=== PATIENT | female | born 1955 | race Caucasian/White ===

== ENCOUNTER 2020-05-13 07:29 | Outpatient (CLI) | payer MEDICARE, OTHER, SELFPAY ==
--- NOTE | 2020-05-13 15:09 | WPDPFTINT ---
PFT Interpretation PFT Interpretation: DOS: 05/13/2020 REQUESTING: Sasha George NP REASON FOR TESTING: wheezing PULMONARY FUNCTION TESTS Results are reliable and reproducible. Spirometry: FEV1 73% mildly reduced, 1.66 L. FVC 70% mildly reduced. Slow vital capacity is 90%. FEV1% is normal. Using Slow vital capacity to calculate FEV1%, there is airflow obstruction. [id number]% is decreased at 52%. No bronchodilator was given. Lung volumes: TLC 94% normal. Slow vital capacity is 90%, much higher than the forced vital capacity, consistent with dynamic air trapping and obstructive physiology. RV 102% normal. RV/TLC is increased 43% consistent with air trapping. Airway resistance 177% increased. Diffusion: DLCO 66% mildly decreased Flow volume loop: Slow start on the expiratory limb and mild coving IMPRESSION: Mild obstructive ventilatory impairment, more significant in the small airways, air trapping, mild diffusion impairment. No bronchodilator was given. This pattern is consistent with COPD. Kimber Galicia MD
== END 2020-05-13 07:30 | disposition home or self-care (01) ==
PROVIDERS: PCP Nurse Practitioner Adult Health; Visit Provider Nurse Practitioner Adult Health
DX: R06.2 Wheezing (principal); R94.2 Abnormal results of pulmonary function studies
CPT/HCPCS: 94375; 94726; 94729

== ENCOUNTER 2020-12-16 07:58 | Outpatient (CLI) | payer MEDICARE, OTHER, SELFPAY ==
[2020-12-16 08:41] LABS: Alveolar/Arterial O2 Gradient 14.6 mmHg; Base Excess ABG 0.6 mEq/l (+/-2.0); Carboxyhemoglobin 0.3 % THb (0-2.0); Device ROOM AIR; Fractional Inspired Oxygen 21 %; HCO3 ABG 24.5 mEq/l (22.0-26.0); Methemoglobin ABG 0.3 %THb (0-1.5); Modified Allen's Test Pass; Oxygen Content ABG 19.6 %vol (16.0-22.0); Oxygen Saturation ABG 97.2 % (95.0-100.0); Oxyhemoglobin 95.9 % THb (90.0-100.0); PCO2 ABG 37.2 mmHg (35.0-45.0); PO2 ABG 90.6 mmHg (80.0-100.0); PO2 FiO2 Ratio Arterial Blood 4.31 %; Reduced Hemoglobin 3.5 %THb (0-5.0); Site Drawn RIGHT RADIAL; Total Hemoglobin 14.5 g/dL (12.0-18.0); pH ABG 7.436 (7.350-7.450)
--- NOTE | 2020-12-17 10:04 | WPDSIXMINUTE ---
Six Minute Walk Six Minute Walk: The patients O2 sats started at 95% on room air and dropped as low as 90% with a Cyril score of 1 at the end of the walk Total walk distance 274.32 meters conclusion: Although there was significant desaturation on exertion, she did not qualify for home oxygen therapy.
== END 2020-12-16 07:59 | disposition home or self-care (01) ==
PROVIDERS: PCP Nurse Practitioner Adult Health; Visit Provider Internal Medicine Pulmonary Disease
DX: J44.9 Chronic obstructive pulmonary disease, unspecified (principal)
CPT/HCPCS: 36600; 82375; 82805; 83050; 94618

== ENCOUNTER 2021-06-16 12:57 | Outpatient (CLI) | payer MEDICARE, OTHER, SELFPAY ==
--- NOTE | ~2021-06-16 | XR_ITS ---
EXAMINATION: XR lg joint inject/asp w image DATE: 06/16/2021 13:56 INDICATION: Left hip osteoarthritis. TECHNIQUE: A time-out was performed to verify the patient's name, date of , and procedure to b e performed. The procedure including the risks, benefits, and alternatives was discussed with the pat ient. Risks discussed included bleeding and infection. The patient understood the risks and agreed to proceed. The skin overlying the left hip joint was prepped and draped in usual sterile fashion. An esthetic was administered with 1% lidocaine subcutaneously. A 22 G needle was advanced under fluoros copic guidance into the joint. Injection of 1 mL of Omnipaque 240 confirmed intra-articular position of the needle. Subsequently, injectate consisting of 4 mL 0.5% bupivacaine and 1 mL 80 mg/mL Depo-M edrol was instilled. The needle was removed and the entry site was cleaned and dressed. There were no immediate complications. Fluoroscopy exposure time was 0.0 minutes. The total number of images was 2. FINDINGS: Real-time fluoroscopy demonstrates the needle in the left hip joint. Patient's pain prior t o procedure:05/04. Patient's pain following the procedure: 01/02. IMPRESSION: 1. Fluoroscopy guided left hip joint injection of local anesthetic and steroid with decrease in the p atient's presenting pain. Reviewed, dictated and finalized at location [facility]. IMPRESSION: 1. Fluoroscopy guided left hip joint injection of local anesthetic and steroid with decrease in the patient's presenting pain.
== END 2021-06-16 12:58 | disposition home or self-care (01) ==
LOC: ANHIMG 13:07
PROVIDERS: PCP Nurse Practitioner Adult Health; Visit Provider Physician Assistant Surgical
DX: M16.12 Unilateral primary osteoarthritis, left hip (principal)
CPT/HCPCS: 20610; 77002; J1040; Q9966

== ENCOUNTER 2023-03-17 07:52 | Outpatient (CLI) | payer MEDICARE, OTHER, SELFPAY ==
--- NOTE | 2023-03-18 06:46 | WPDPFTINT ---
PFT Procedure Performed PFT Procedure Performed Spirometry with Pre/Post Bronchodilator Plethysmography (Lung Vol) Diffusing Cap (DLCO) Flow Vol Loop PFT Interpretation This is a pulmonary function test with pre and post-bronchodilator spirometry, plethysmography and diffusing capacity. The test was performed and results interpreted in accordance with the 2019 and 2005 ATS/ERS Task Force guidelines respectively using the Global Lung Function Initiative-2012 reference equations. Patient demonstrated good effort and cooperation. Reproducibility criteria were met. The quality of the pre bronchodilator spirometry maneuver was Grade A and post bronchodilator spirometry maneuver was Grade A. Findings: Spirometry: The contour the inspiratory and expiratory flow tracing is normal. The pre bronchodilator FVC is 2.32 L, 75% predicted. The pre bronchodilator FEV1 is 1.65 L, 69% predicted. The pre bronchodilator FEV1: FVC ratio 71%. The post bronchodilator FVC is 2.26 L, representing a 3% decrease. The post bronchodilator FEV1 is 1.62 L, representing a 2% decrease. The post bronchodilator FEV1: FVC ratio 72%. Plethysmography: The total lung capacity is 4.29 L, 80% predicted. The functional residual capacity is 2.20 L, 71% predicted. The residual volume is 1.97 L, 86% predicted. Diffusing capacity: The diffusing capacity unadjusted for hemoglobin and carboxyhemoglobin is 14.5, 68% predicted. The diffusing capacity adjusted for alveolar volume is 4.27, 101% predicted. Impression: There is a moderate restrictive ventilatory abnormality. The spirometry is normal without evidence of an obstructive abnormality. There is no significant improvement after inhaling a single dose of albuterol. The diffusing capacity unadjusted for hemoglobin and carboxyhemoglobin is mildly decreased and normalizes when adjusted for alveolar volume. There are no prior studies for comparison
--- NOTE | 2023-03-18 06:49 | WPDSIXMINUTE ---
Six Minute Walk Procedure Procedure Performed Pulmonary Stress Test (6 min walk) Six Minute Walk Six Minute Walk: This is a 6 minute walk test. The test was performed and interpreted in accordance with the 2014 ERS/ATS task force guidelines. Findings: The patient's resting room air oxygen saturation measured by pulse oximetry was 95% and heart rate was 91 bpm. Patient ambulated for 305 meters and oxygen saturation remained 90 to 97%. Heart rate at the end of the study was 98 bpm. The patient did not qualify for supplemental oxygen at rest or with ambulation. There are no prior studies for comparison.
== END 2023-03-17 07:53 | disposition home or self-care (01) ==
LOC: ANHPFT 07:53
PROVIDERS: PCP Nurse Practitioner Adult Health; Visit Provider Nurse Practitioner
DX: J44.9 Chronic obstructive pulmonary disease, unspecified (principal); R94.2 Abnormal results of pulmonary function studies
CPT/HCPCS: 94060; 94618; 94726; 94729

== ENCOUNTER 2023-03-21 07:26 | Outpatient (CLI) | payer MEDICARE, OTHER, SELFPAY ==
[2023-03-21 19:42] LABS: Basophils Absolute Auto 0.1 K/mm3 (0.0-0.1); Basophils Percent Auto 0.8 % (0.2-1.2); Eosinophils Absolute Auto 0.6 K/mm3 (0-0.3); Eosinophils Percent Auto 8.5 % (0-4.4); Hematocrit 43.3 % (37.0-47.0); Hemoglobin 13.3 g/dL (12.0-15.0); Immature Granulocyte Absolute 0.01 K/mm3 (0.00-0.031); Immature Granulocyte Percent A 0.2 % (0-0.5); Lymphocytes Absolute Auto 1.96 K/mm3 (0.9-3.2); Lymphocytes Percent Auto 29.9 % (18.3-44.2); Mean Corpuscular HGB Conc 30.7 g/dl (32-36); Mean Corpuscular Hemoglobin 30.3 pg (26-34); Mean Corpuscular Volume 98.6 fl (80-100); Monocytes Absolute Auto 0.6 K/mm3 (0.1-0.6); Monocytes Percent Auto 8.7 % (2.6-8.5); Neutrophils Absolute Auto 3.4 K/mm3 (1.3-6.7); Neutrophils Percent Auto 51.9 % (45.5-73.1); Platelet Count Result 261 k/mm3 (150-375); Red Blood Count 4.39 M/mm3 (4.2-5.4); White Blood Count 6.6 K/mm3 (4.5-10.0)
[2023-03-21 19:57] LABS: Alanine Aminotransferase 23 U/L (6-35); Albumin Level 4.1 g/dL (3.5-5.1); Alkaline Phosphatase 94 U/L (38-126); Anion Gap 3 mmol/L (8-16); Aspartate Amino Transferase 36 U/L (14-36); Bilirubin,Total 0.6 mg/dL (0.2-1.3); Blood Urea Nitrogen 22 mg/dL (7-17); Calcium 9.1 mg/dL (8.4-10.2); Carbon Dioxide 35 mmol/L (22-30); Chloride 100 mmol/L (98-107); Cholesterol 160 mg/dL (0-200); Estimated Glomerular Filt Rate > 60; Glucose 87 mg/dL (65-110); HDL Direct 57 mg/dL; Potassium 4.2 mmol/L (3.4-5.0); Sodium 138 mmol/L (137-145); Triglycerides 105 mg/dL (<150)
[2023-03-21 20:08] LABS: LDL Cholesterol Direct 79 mg/dL
== END 2023-03-21 07:27 | disposition home or self-care (01) ==
PROVIDERS: PCP Nurse Practitioner Adult Health; Visit Provider Nurse Practitioner Adult Health
DX: I10 Essential (primary) hypertension (principal)
CPT/HCPCS: 36415; 80048; 80061; 80076; 85025

== ENCOUNTER 2023-05-26 07:20 | Outpatient (CLI) | payer MEDICARE, OTHER, SELFPAY ==
--- NOTE | ~2023-05-26 | CT_ITS ---
CT Scan of the Chest without Contrast: Clinical Indication: Fibrosis Technique: Contiguous sections were acquired throughout the chest without intravenous contrast. Dose reduction technique was used on this scan by utilizing automated exposure control and iterative recon struction technique. The dose-length product (DLP) was 575.46 mGy-cm. Findings: There is no evidence of any significant mediastinal, hilar or axillary lymphadenopathy. Coronary rae ry calcifications are present. There is no evidence of pleural or pericardial effusion. There is mild subpleural reticulation, predominantly in the upper lobes with minimal peripheral inter stitial thickening. Calcified right basilar granuloma present. Images through the upper abdomen reveal multiple calcified gallstones. Impression: Mild, peripheral chronic interstitial changes in the upper lobes. Cholelithiasis. Reviewed, dictated and finalized at [facility]. Impression: Mild, peripheral chronic interstitial changes in the upper lobes. Cholelithiasis.
== END 2023-05-26 07:21 | disposition home or self-care (01) ==
PROVIDERS: PCP Nurse Practitioner Adult Health; Visit Provider Nurse Practitioner
DX: J84.10 Pulmonary fibrosis, unspecified (principal); K80.20 Calculus of gallbladder without cholecystitis without obstruction
CPT/HCPCS: 71250

== ENCOUNTER 2023-06-16 02:25 | Day surgery (SDC) | payer MEDICARE, OTHER, SELFPAY ==
[2023-06-02 13:21] VITALS: BMI 37.0
[2023-06-16 06:44] VITALS: BP 156/100; PULSE 98; RESP 18; TEMP 36.1; O2SAT 94
[2023-06-16] MEDS: LACTATED RINGERS 1,000 ML 150 ML IV CONT (06:52)
--- NOTE | 2023-06-16 07:47 | WPDANESEPPF ---
Anes - Initial Pre Proc Eval Procedure: Operation Date: 06/16/23 08:00 Proposed Procedures p Screening Colonoscopy - Chase Glover MD Date/Time: 06/16/23 07:47 Surgeon: Chase Glover MD Pre Op Diagnosis: neoplasm colonscopy Patient Data Age: 68 Gender: F Height: 1.68 m Weight: 100 kg Last Vital Signs Temp 97 F L 06/16/23 06:44 Pulse 98 06/16/23 06:44 Resp 18 06/16/23 06:44 BP 156/100 H 06/16/23 06:44 Pulse Ox 94 06/16/23 06:44 O2 Del Method Room Air 06/16/23 06:44 Allergies Allergy/AdvReac Type Severity Reaction Status Date / Time CODIENE AdvReac Intermediate NAUSEA Uncoded 06/16/23 06:44 Home Medications Medication Instructions Recorded Confirmed Type fluoxetine 20 mg capsule 20 mg PO DAILY #90 caps 03/16/23 06/16/23 Rx fluticasone fur. 100 mcg-umeclid 1 inh inhalation DAILY 03/16/23 06/02/23 History 62.5 mcg-vilant 25 mcg inhalat.powder (Trelegy Ellipta) furosemide 20 mg tablet 20 mg PO QAM #90 tabs 03/16/23 06/02/23 Rx losartan 50 mg tablet 50 mg PO DAILY #90 tabs 03/16/23 06/16/23 Rx ibuprofen 200 mg capsule 200 mg PO Q8H PRN Pain 06/02/23 06/02/23 History multivitamin 1 tablet PO DAILY 06/02/23 06/02/23 History tramadol 50 mg tablet 50 mg PO Q6H PRN pain #120 tabs 06/06/23 Rx Patient hx anesthesia problems: none Family hx anesthesia problems: none Results Review: All pre-operative results and documents have been reviewed as part of the pre-operative evaluation. [facility] Family History Family History (Updated 03/16/23 @ 15:22 by Chandni Morales MA) Father Hypertension Cerebrovascular accident Sibling History of ETOH abuse Sibling Cancer Social History Social History (Updated 03/16/23 @ 15:33 by Chandni Morales MA) Smoking packs per day: 1.5 Smoking cigarettes per day: 30.0 Years smoked: 25 Smoking pack-years: 37.50 Smoking status: Former smoker Tobacco type: cigarettes Alcohol intake: current Alcohol use details: beer Occasional Substance use: never Substance use type: does not use Lack of Transportation: No Lack of Food: Never True Current Housing: I Have Housing Concerned About Future Housing: No Difficulty Paying Gas/Electric Bills: No Difficulty Paying for Meds: No Currently Unemployed: No Education: High School Diploma/GED Difficulty w/ Childcare or Family Care: No Living arrangements: with family Occupation/Education: occupation Additional occupation/education comments: [employer] Gender identity (if verbalized by the patient): Female Spiritual care concerns: No Agree to blood products: Yes Anes - Eval Final PreProcedure Day of Procedure 06/16/23 07:47 Patient weight: obese Heart: regular rate and rhythm Lungs: clear to auscultation Airway: Mallampati scale class II Neurological: alert and oriented Last oral intake: >/= 8 hours ASA classification: III Emergent: no Anesthetic plan: proceed Anesthesia type and monitoring: general GIVS and standard monitoring Results Review: All pre-operative results and documents have been reviewed as part of the pre-operative evaluation. Informed Consent: The patient's anesthetic plan and its attendant risks and benefits were discussed with the patient/family/POA. Questions were solicited and answers provided to the satisfaction of the patient/family/POA.
--- NOTE | 2023-06-16 07:52 | PM.HPGS ---
History of Present Illness History of Present Illness Consent: Risks, benefits, and alternatives have been discussed and questions answered. Patient agrees to proceed with procedure. Chief complaint: neoplasm colonscopy Narrative: Prema Blair is a 68 year old female with colon polyps but she thinks last colonoscopy 5 years ago did not have any. Review of Systems Constitutional: Constitutional: Denies headache(s) and Denies weakness Eyes: Eyes: Denies blurry vision ENT: Reports Normal hearing present, Denies headache(s) and Denies neck pain Cardiovascular: Cardiovascular: Denies chest pain and Denies dyspnea Respiratory: Respiratory: Denies dyspnea Gastrointestinal: Gastrointestinal: Reports no additional gastrointestinal complaints Genitourinary: Genitourinary: Denies dysuria Musculoskeletal: Musculoskeletal: Denies neck pain Integumentary/Breasts: Skin/Breast: Denies dry skin Neurologic: Reports Normal hearing present, Denies headache(s) and Denies weakness Psychiatric: Psychiatric: Denies anxiety Endocrine: Endocrine: Denies change in body appearance Hematologic/Lymphatic: Hematologic/Lymphatic: Denies easy bleeding Allergic/Immunologic: Allergic/Immunologic: Denies urticaria PMF Past Medical History Medical History (Updated 06/16/23 @ 07:53 by Chase Glover MD) Colon polyp Family History Family History (Updated 03/16/23 @ 15:22 by Chandni Morales MA) Father Hypertension Cerebrovascular accident Sibling History of ETOH abuse Sibling Cancer Social History Social History (Updated 03/16/23 @ 15:33 by Chandni Morales MA) Smoking packs per day: 1.5 Smoking cigarettes per day: 30.0 Years smoked: 25 Smoking pack-years: 37.50 Smoking status: Former smoker Tobacco type: cigarettes Alcohol intake: current Alcohol use details: beer Occasional Substance use: never Substance use type: does not use Lack of Transportation: No Lack of Food: Never True Current Housing: I Have Housing Concerned About Future Housing: No Difficulty Paying Gas/Electric Bills: No Difficulty Paying for Meds: No Currently Unemployed: No Education: High School Diploma/GED Difficulty w/ Childcare or Family Care: No Living arrangements: with family Occupation/Education: occupation Additional occupation/education comments: [employer] Gender identity (if verbalized by the patient): Female Spiritual care concerns: No Agree to blood products: Yes Meds Home Medications and Allergies Home Medications Medication Instructions Recorded Confirmed Type fluoxetine 20 mg capsule 20 mg PO DAILY #90 caps 03/16/23 06/16/23 Rx fluticasone fur. 100 mcg-umeclid 1 inh inhalation DAILY 03/16/23 06/02/23 History 62.5 mcg-vilant 25 mcg inhalat.powder (Trelegy Ellipta) furosemide 20 mg tablet 20 mg PO QAM #90 tabs 03/16/23 06/02/23 Rx losartan 50 mg tablet 50 mg PO DAILY #90 tabs 03/16/23 06/16/23 Rx ibuprofen 200 mg capsule 200 mg PO Q8H PRN Pain 06/02/23 06/02/23 History multivitamin 1 tablet PO DAILY 06/02/23 06/02/23 History tramadol 50 mg tablet 50 mg PO Q6H PRN pain #120 tabs 06/06/23 Rx Allergies Allergy/AdvReac Type Severity Reaction Status Date / Time CODIENE AdvReac Intermediate NAUSEA Uncoded 06/16/23 06:44 Vital Signs Vital Signs - 24 hr 06/16/23 06:44 Temperature 97 F L Pulse Rate 98 Respiratory Rate 18 Blood Pressure 156/100 H Pulse Oximetry 94 Oxygen Delivery Room Air Exam Const: General: comfortable and no acute distress HENMT: Face/Nose/Sinus: Normal nares present Eyes: General: appearance normal, both eyes and all related structures Neck: Neck: no JVD Resp: Auscultation: clear to auscultation bilaterally Cardio: Rate: regular rate Rhythm: regular rhythm GI: Inspection: non-distended GI Palp: Yes Soft to palpation Skin: General skin exam: normal color Neuro: General: gait nor
[2023-06-16 08:14] VITALS: BP 126/63; PULSE 82; RESP 22; O2SAT 96
--- NOTE | 2023-06-16 08:14 | SUR.OPER ---
sigmoid polyp was not retrieved, dr galeas aware.
[2023-06-16 08:24] VITALS: BP 142/83; PULSE 76; RESP 20; O2SAT 97
[2023-06-16 08:34] VITALS: BP 163/100; PULSE 72; RESP 18; O2SAT 97
== END 2023-06-16 08:39 | disposition home or self-care (01) ==
PROVIDERS: PCP Nurse Practitioner Adult Health; Visit Provider Internal Medicine Gastroenterology
PROC: 0DJD8ZZ Inspection of Lower Intestinal Tract, Via Natural or Artificial Opening Endoscopic (ICD-10-PCS; CPT 45378; principal; 2023-06-16 08:00)
DX: Z12.11 Encounter for screening for malignant neoplasm of colon (principal); K57.30 Diverticulosis of large intestine without perforation or abscess without bleeding; K63.5 Polyp of colon; K64.8 Other hemorrhoids; Z79.51 Long term (current) use of inhaled steroids; Z87.891 Personal history of nicotine dependence; E66.9 Obesity, unspecified; Z68.35 Body mass index [BMI] 35.0-35.9, adult
CPT/HCPCS: 45385; J2704; J7120

== ENCOUNTER 2023-09-22 07:25 | Outpatient (CLI) | payer MEDICARE, OTHER, SELFPAY ==
[2023-09-22 18:46] LABS: Basophils Absolute Auto 0.1 K/mm3 (0.0-0.1); Basophils Percent Auto 0.9 % (0.2-1.2); Eosinophils Absolute Auto 0.2 K/mm3 (0-0.3); Hematocrit 46.3 % (37.0-47.0); Hemoglobin 14.4 g/dL (12.0-15.0); Lymphocytes Percent Auto 31.6 % (18.3-44.2); Mean Corpuscular HGB Conc 31.1 g/dl (32-36); Mean Corpuscular Hemoglobin 30.5 pg (26-34); Mean Corpuscular Volume 98.1 fl (80-100); Mean Platelet Volume 8.9 fl (7.4-10.4); Monocytes Absolute Auto 0.6 K/mm3 (0.1-0.6); Neutrophils Percent Auto 53.5 % (45.5-73.1); Platelet Count Result 212 k/mm3 (150-375); Red Blood Count 4.72 M/mm3 (4.2-5.4); Red Cell Distribution Width 13.6 % (11.5-14.5); White Blood Count 5.7 K/mm3 (4.5-10.0)
[2023-09-22 18:55] LABS: Alanine Aminotransferase 23 U/L (6-35); Albumin Level 3.8 g/dL (3.5-5.1); Alkaline Phosphatase 90 U/L (38-126); Anion Gap 3 mmol/L (8-16); Aspartate Amino Transferase 45 U/L (14-36); Bilirubin,Total 0.6 mg/dL (0.2-1.3); Blood Urea Nitrogen 18 mg/dL (7-17); Calcium 9.1 mg/dL (8.4-10.2); Carbon Dioxide 34 mmol/L (22-30); Chloride 102 mmol/L (98-107); Cholesterol 198 mg/dL (0-200); Estimated Glomerular Filt Rate > 60; Glucose 95 mg/dL (65-110); HDL Direct 61 mg/dL; Potassium 4.5 mmol/L (3.4-5.0); Sodium 139 mmol/L (137-145); Triglycerides 64 mg/dL (<150)
[2023-09-22 19:05] LABS: LDL Cholesterol Direct 105 mg/dL
[2023-09-22 19:10] LABS: Hemoglobin A1C 6.5 % (<5.7)
== END 2023-09-22 07:26 | disposition home or self-care (01) ==
PROVIDERS: PCP Nurse Practitioner Adult Health; Visit Provider Nurse Practitioner Adult Health
DX: R73.9 Hyperglycemia, unspecified (principal); I10 Essential (primary) hypertension; M54.9 Dorsalgia, unspecified; Z98.890 Other specified postprocedural states
CPT/HCPCS: 36415; 80053; 80061; 83036; 84443; 85025

== ENCOUNTER 2023-12-01 08:56 | Outpatient (CLI) | payer MEDICARE, OTHER, SELFPAY ==
--- NOTE | ~2023-12-01 | MR_ITS ---
MRI of the lumbar spine Clinical History: Sacrococcygeal disorder Technique: Axial T2-weighted images, and sagittal T1-weighted, T2-weighted, and T2 fat-sat images wer e acquired. Findings: There is 32 degrees levoscoliosis, apex at the L3-L4 disc space level. No acute fracture ev ident. There is minimal grade 1 retrolisthesis of L2 over L3, and of L1 over L2. No suspicious bone m arrow signal reality seen. At L1-L2, there is severe degenerative disc narrowing with minimal disc bulge and mild facet arthropa thy. No vera central canal stenosis. There is mild bilateral neural foraminal narrowing. At L2-L3, there is severe degenerative disc narrowing. There is mild disc bulge with advanced facet a rthropathy, resulting in moderate spinal canal stenosis/thecal sac compression. There is severe right neural foraminal narrowing, and moderate to severe left neural foraminal narrowing. At L3-L4, there is partial fusion across the disc space with minimal disc bulge. There is moderate fa cet arthropathy. There is mild central canal stenosis. There is severe right neural foraminal narrowi ng. Left neural foramen preserved. At L4-L5, there is moderate degenerative disc narrowing. Disc bulge and severe facet arthropathy are present. No vera central canal stenosis. There is severe bilateral neural foraminal compromise. At L5-S1, there is diffuse disc bulge and severe facet arthropathy. There is mild central canal steno sis. There is severe left neural foraminal caliber otherwise. Right neural foramen preserved. Paravertebral soft tissues are unremarkable. Impression: Levoscoliosis with severe degenerative spondylitic change, as detailed above. Reviewed, dictated and finalized at [facility]. [employer] Impression: Levoscoliosis with severe degenerative spondylitic change, as detailed above.
== END 2023-12-01 08:57 ==
LOC: GOSHIMG 08:57
PROVIDERS: PCP Nurse Practitioner Adult Health; Visit Provider Orthopaedic Surgery
DX: M53.3 Sacrococcygeal disorders, not elsewhere classified (principal)
CPT/HCPCS: 72148

== ENCOUNTER 2024-04-03 07:03 | Outpatient (CLI) | payer MEDICARE, OTHER, SELFPAY ==
[2024-04-03 18:41] LABS: Basophils Absolute Auto 0.1 K/mm3 (0.0-0.1); Basophils Percent Auto 0.9 % (0.2-1.2); Eosinophils Absolute Auto 0.5 K/mm3 (0-0.3); Eosinophils Percent Auto 8.1 % (0-4.4); Hematocrit 46.4 % (37.0-47.0); Hemoglobin 14.3 g/dL (12.0-15.0); Immature Granulocyte Absolute 0.01 K/mm3 (0.00-0.031); Immature Granulocyte Percent A 0.2 % (0-0.5); Lymphocytes Absolute Auto 2.34 K/mm3 (0.9-3.2); Mean Corpuscular HGB Conc 30.8 g/dl (32-36); Mean Corpuscular Hemoglobin 31.2 pg (26-34); Mean Corpuscular Volume 101.3 fl (80-100); Monocytes Absolute Auto 0.6 K/mm3 (0.1-0.6); Monocytes Percent Auto 8.9 % (2.6-8.5); Neutrophils Absolute Auto 2.8 K/mm3 (1.3-6.7); Neutrophils Percent Auto 44.9 % (45.5-73.1); Platelet Count Result 263 k/mm3 (150-375); Red Blood Count 4.58 M/mm3 (4.2-5.4); Red Cell Distribution Width 13.9 % (11.5-14.5); White Blood Count 6.3 K/mm3 (4.5-10.0)
[2024-04-03 19:30] LABS: Alanine Aminotransferase 24 U/L (6-35); Alkaline Phosphatase 90 U/L (38-126); Anion Gap 8 mmol/L (4-12); Aspartate Amino Transferase 62 U/L (14-36); Bilirubin,Total 0.7 mg/dL (0.2-1.3); Blood Urea Nitrogen 24 mg/dL (7-17); Calcium 9.1 mg/dL (8.4-10.2); Carbon Dioxide 30 mmol/L (22-30); Chloride 100 mmol/L (98-107); Cholesterol 169 mg/dL (0-200); Estimated Glomerular Filt Rate > 60; Glucose 76 mg/dL (65-110); HDL Direct 55 mg/dL; Magnesium 2.1 mg/dL (1.6-2.3); Potassium 4.4 mmol/L (3.4-5.0); Sodium 138 mmol/L (137-145); Triglycerides 148 mg/dL (<150)
[2024-04-03 19:40] LABS: LDL Cholesterol Direct 87 mg/dL
[2024-04-03 19:44] LABS: Hemoglobin A1C 6.4 % (<5.7)
== END 2024-04-03 07:04 | disposition home or self-care (01) ==
PROVIDERS: PCP Nurse Practitioner Adult Health; Visit Provider Nurse Practitioner Adult Health
DX: E11.9 Type 2 diabetes mellitus without complications (principal); I10 Essential (primary) hypertension
CPT/HCPCS: 36415; 80053; 80061; 83036; 83735; 84443; 85025

== ENCOUNTER 2024-05-22 08:12 | Outpatient (CLI) | payer MEDICARE, OTHER, SELFPAY ==
--- NOTE | ~2024-05-22 | MM_ITS ---
EXAMINATION: MM screening [facility] BI w tank HISTORY: Screening TECHNIQUE: Craniocaudal and mediolateral oblique 3-D tomosynthesis images were obtained and synthetic 2-D images were generated. CAD analysis was submitted and interpreted. COMPARISON: Comparison to multiple prior studies sequentially, with oldest reviewed study dated 03/2014. BREAST PARENCHYMAL COMPOSITION: Not dense: There are scattered areas of fibroglandular density. FINDINGS: Diminishing size of benign-appearing mass in the lower central aspect of the left breast, m iddle third. There are associated benign calcifications. There is no evidence of suspicious mass, phi cification, or architectural distortion to suggest malignancy in either breast. There has been no alexis picious interval change. IMPRESSION: 1. No mammographic evidence of malignancy. 2. Recommend routine screening mammography in one year. BI-RADS Category 2: Benign finding(s). Reviewed, dictated and finalized at location [facility].
== END 2024-05-22 08:13 | disposition home or self-care (01) ==
LOC: ANHIMG 08:13
PROVIDERS: PCP Nurse Practitioner Adult Health; Visit Provider Nurse Practitioner Adult Health
DX: Z12.31 Encounter for screening mammogram for malignant neoplasm of breast (principal)
CPT/HCPCS: 77063; 77067

== ENCOUNTER 2025-04-14 07:55 | Outpatient (CLI) | payer MEDICARE, OTHER, SELFPAY ==
--- OUTSIDE RECORDS SUMMARY | 2025-04-14 08:00 | XMS_ITS | Referral Summary ---
Author Organization [facility] Address [address] [place] [address] Care Team Providers Care Truck Farmer Name Role Phone Denisse Thorne Unavailable [phone] Cedrick Reinoso NP Unavailable [phone] Sasha George NP Primary Care Provider [phone] Encounters Date Type Department Care Team Description 03/20/2025 8:00 AM CDT Office Visit [facility] Orthopedics and Sports Medicine [address] [place] [address] [address] [phone] Damion Thompson MD Primary osteoarthritis of both knees (Primary Dx) from Last 3 Months Allergies Active Allergy Reactions Criticality Noted Date Comments Clindamycin Rash Medium 03/27/2024 Codeine Nausea only Low 07/26/2018 Hydrocodone Nausea only Low 07/13/2021 Medications furosemide (LASIX) 20 mg tablet Take 1 tablet (20 mg total) by mouth daily 1 Active FLUoxetine (PROzac) 10 mg tablet/capsule Take 2 tablet/capsule (20 mg total) by mouth daily 2 Active traMADoL (ULTRAM) 50 mg tablet 2 Active albuterol HFA (Ventolin HFA) 90 mcg/actuation inhaler Inhale 2 puffs every 4 (four) hours Active diclofenac DR (VOLTAREN) 75 mg EC tablet Take 1 tablet (75 mg total) by mouth 2 (two) times a day 4 Active Ozempic 0.25 mg or 0.5 mg (2 mg/3 mL) pen injector injection 4 Active metFORMIN XR (GLUCOPHAGE XR) 500 mg 24 hr tablet Take 1 tablet (500 mg total) by mouth daily with breakfast 4 Active buPROPion XL (WELLBUTRIN XL) 300 mg 24 hr tablet Take 1 tablet (300 mg total) by mouth daily 4 Active losartan (COZAAR) 100 mg tablet 5 Active fluticasone-ume clidin-vilanter (Trelegy Ellipta) 100-62.5-25 mcg inhaler Inhale 1 puff by mouth once daily 60 each 5 5 Active Hospital, Clinic, or Other Facility Administered Medication Ordered Dose Route Frequency Start Date End Date Status triamcinolone acetonide extended release (ZILRETTA ER) intra-articular injection 32 mgIndications:Primar y osteoarthritis of both knees 32 mg intra-artic One-Time Injection 03/20/2025 5 Ended triamcinolone acetonide extended release (ZILRETTA ER) intra-articular injection 32 mgIndications:Primar y osteoarthritis of both knees 32 mg intra-artic One-Time Injection 03/20/2025 5 Ended lidocaine (XYLOCAINE) 20 mg/mL (2 %) injection 2 mLIndications:Admini stration of Local Anesthesia 2 mL One-Time Injection 03/20/2025 5 Ended lidocaine (XYLOCAINE) 20 mg/mL (2 %) injection 2 mLIndications:Admini stration of Local Anesthesia 2 mL One-Time Injection 03/20/2025 5 Ended Active Problems Problem Noted Date Diagnosed Date Cigarette nicotine dependence in remission 07/03 Assessment & Plan (12/27/2024 1:09 PM CDT): She quit 20 years ago and no longer qualifies for annual screening I will follow as needed if she were to have a CT chest with abnormal findings in the interval Assessment & Plan (07/03/2024 10:53 AM CDT): She quit 20 years ago and no longer qualifies for annual screening Bilateral primary osteoarthritis of knee 023 Rotator cuff tear arthropathy, right 02/07/2022 Overview (02/07/2022): Added automatically from request for surgery [id number] Biceps tendonitis, right 02/07/2022 Overview (02/07/2022): Added automatically from request for surgery [id number] Arthritis 01/21/2022 Essential hypertension 01/21/2022 Family history of stroke 01/21/2022 Family history of ischemic h eart disease and other diseases of the circulatory system 01/21/2022 Inflammation of sacroiliac joint 01/21/2022 Injury of medial collateral ligament (MCL) of kn ee 01/21/2022 Knee pain 01/21/2022 Menopause present 01/21/2022 Vitamin D deficiency 01/21/2022 Mixed anxiety and depressive disorder 11/16/2021 Primary osteoarthritis of left hip 07/20/2021 Overview (07/20/2021): Added automatically from request for surgery [id number] Localized, primary osteoarthritis of hand 2020 Chondromalacia of patella 10/22/2020 Obesity 10/22/2020 Urge incontinence of urine 10/12/2020 Chronic obstructive pulmonary disease 05/13/2020 Assessment & Plan (12/27/2024 1:06 PM CDT): Continue Trelegy Ellipta 100 daily at the same time Albuterol as needed only, she is aware of indications for use A1AT normal She does not frequently exacerbate, there is no need to adjust her plan of care at this time or change her medication regimen Remote history of eosinophilia, her count was 400 in January of 2022 We have discussed signs and symptoms that would require earlier evaluation or change to her plan of care Assessment & Plan (07/03/2024 10:52 AM CDT): Continue Trelegy Ellipta 100 daily Albuterol as needed only, she was aware of indications for use A1AT normal She does not frequently exacerbate, there is no need to adjust her plan of care at this time Remote history of eosinophilia Spinal stenosis of lumbar region 01/30/2020 Benign hypertension 05/10/2019 Peripheral venous insufficiency 05/10/2019 Edema 02/08/2019 Eosinophils increased 02/06/2019 Abnormal EKG 07/06/2018 Shortness of breath 07/06/2018 Ventricular premature beats 07/06/2018 Social History Tobacco Use Types Packs/Day Years Used Date Smoking Tobacco: Former Cigarettes 1.5 35 1 969 - 2004 Smokeless Tobacco: Never Tobacco Cessation:Counseling Given: Not Answered Alcohol Use Standard Drinks/Week Comments Yes 1 (1 standard drink = 0.6 oz pur e alcohol) occasional AUDIT-C Answer Date Recorded Q1: How often do you have a drink containing alcohol? Never 10/11/2024 Q2: How many drinks containi ng alcohol do you have on a typical day when you are drinking? Patient does not drink Q3: How often do you have si x or more drinks on one occasion? 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 Author CCM Chronic Pain Care Plan Chronic Care Management Mone Harding, RN Note: Problem: Chronic Pain Goals: 1. Minimize further functional decline 2. Maximize quality of life 3. Control pain Strategies: - Activity/exercise program recommendation - Conservative stepwise pain medicine strategy with multi-disciplinary approach - Recommend healthy lifestyle strategies and compensatory methods as needed Reduce the likelihood of falling Lifestyle Mone Harding RN Note: Below are four things you can do to prevent falls: 1. Begin an exercise program to improve your leg strength & balance 2. Ask your doctor or pharmacist to review your medicines 3. Get annual eye check-ups & update your eyeglasses 4. Make your home safer by: Removing clutter & tripping hazards Putting railings on all stairs & adding grab bars in the bathroom Having good lighting, especially on stairs Contact your local community or [facility] for information on exercise, fall prevention programs, or options for improving home safety. Medical Devices Implanted Type Area Requirements Engineer Device Identifier Shelf Expiration Date Model / Serial / Lot Depuy [employer]opa[employer] 1217-35-500 Slater 6.5mm 35mm Acetabular Cancellous Screw Bone Sterile - [id number] Implanted:Qty: 1 on 07/28/2021 by Damion Thompson MD at [facility] Left: Hip [employer] 05/25/2031 1217-35-500 / / [id number] Dep[employer] [id number] Slater 54mm 36mm Hip Neutral Liner Acetabular Altrx Sterile Latex Free - [id number] Implanted:Qty: 1 on 07/28/2021 by Damion Thompson MD at [facility] Left: Hip [employer] 04/24/2026 [id number] / / [id number] Dep[employer] [id number] Slater 54mm Sector Hip Shell Acetabular Gription Sterile Latex Free - [id number] Implanted:Qty: 1 on 07/28/2021 by Damion Thompson MD at [facility] Left: Hip [employer] 06/24/2031 [id number] / / [id number] Dep[employer] [id number] Actis L107 Mm Collar Hip 6 High Offset Stem Femoral - [id number] Implanted:Qty: 1 on 07/28/2021 by Damion Thompson MD at [facility] Left: Hip [employer] 05/25/2031 [id number] / / [id number] Depuy [employer] [id number] Articul/Ender 36mm Cementless Hip +5mm 12/14 Taper Head Femoral Latex Free - [id number] Implanted:Qty: 1 on 07/28/2021 by Damion Thompson MD at [facility] Left: Hip [employer] 05/25/2026 [id number] / / [id number] Exactech Equinoxe 4.5mm 38mm Kit Compression Lock Cap Reverse Shoulder 320-20-38 - Sn/A - [id number] Implanted:Qty: 1 on 03/10/2022 by Denis Aleman MD at [place] [id number] 12/20/2026 320-20-38 / N/A / [id number] Exactech Equinoxe 4.5mm 42mm Kit Compression Lock Cap Reverse Shoulder 320-20-42 - Sn/A - [id number] Implanted:Qty: 1 on 03/10/2022 by Denis Aleman MD at [facility] 06/29/2025 320-20-42 / N/A / [id number] Liner +2.5mm 36mm Huml Rvrs Equinoxe Shldr - Sn/A - [id number] Implanted:Qty: 1 on 03/10/2022 by Denis Aleman MD at [place] [id number] 12/22/2024 320-36-03 / N/A / [id number] Exactech Equinoxe Reverse Shoulder +0mm Tray Humeral Adapter 320-10 - Sn/A - [id number] Implanted:Qty: 1 on 03/10/2022 by Denis Aleman MD at [place] [id number] 02/09/2032 320-10- / N/A / [id number] Exactech Equinoxe 13mm Press Fit Primary Shoulder Stem Humeral 300-10-07 - Sn/A - [id number] Implanted:Qty: 1 on 03/10/2022 by Denis Aleman MD at [place] [id number] 05/16/2029 300-10-07 / N/A / [id number] Exactech 320-31-36 Component 36mm Glenoid Glenosphere Reverse Shoulder - Sn/A - [id number] Implanted:Qty: 1 on 03/10/2022 by Denis Aleman MD at [place] [id number] 12/27/2031 320-31-36 / N/A / [id number] Exactech Equinoxe Lock Reverse Shoulder Glenosphere Screw Bone 320-15-05 - Sn/A - [id number] Implanted:Qty: 1 on 03/10/2022 by Denis Aleman MD at [place] [id number] 02/06/2027 320-15-05 / N/A / [id number] Exactech [id number] e Small Reverse Posterior Augment Shoulder Right 8d Plate - Sn/A - [id number] Implanted:Qty: 1 on 03/10/2022 by Denis Aleman MD at [place] [id number] 09/10/2030 320-35-04 / N/A / [id number] Exactech Reverse Torque Define Shoulder Kit Screw 320-20-00 - Sn/A - [id number] Implanted:Qty: 1 on 03/10/2022 by Denis Aleman MD at [place] [id number] 05/12/2026 320-20-00 / N/A / [id number] Procedures Procedure Name Priority Date/Time Associated Diagnosis Comments [place] ARTHROCENTESIS ASPIR&/INJ MAJOR JT/BURSA W/O US Routine 03/20/2025 8:00 AM CDT Primary osteoarthritis of both knees [place] ARTHROCENTESIS ASPIR&/INJ MAJOR JT/BURSA W/O US Routine 03/20/2025 8:00 AM CDT Primary osteoarthritis of both knees from Last 3 Months Results * [place] ARTHROCENTESIS ASPIR&/INJ MAJOR JT/BURSA W/O US (03/20/2025 8:00 AM CDT) Narrative Damion Thompson MD - 03/20/2025 8:00 AM CDT Damion Thompson MD 03/20/2025 4:23 PM Large Joint (Hip, Knee, Shoulder) Injection: R knee Performed by: Damion Thompson MD Authorized by: Damion Thompson MD Large Joint Injection/Aspiration: Consent Given by: Patient Site marked: the procedure site was marked Timeout: prior to procedure the correct patient, procedure, and site was verified Verbal consent obtained: Yes Supporting Documentation: Indications: Pain Procedure Details: Location: Knee Site: R knee Needle Size: 22 G Approach: Anterolateral Ultrasound guided: No Fluroscopic guidance: No Medications: 2 mL lidocaine 20 mg/mL (2 %); 32 mg triamcinolone acetonide extended release 32 mg Patient tolerance: Patient tolerated the procedure well with no immediate complications Damion Thompson MD IN CLINIC/BEDSIDE ORDERA BLES Final Result * [place] ARTHROCENTESIS ASPIR&/INJ MAJOR JT/BURSA W/O US (03/20/2025 8:00 AM CDT) Narrative Damion Thompson MD - 03/20/2025 8:00 AM CDT Damion Thompson MD 03/20/2025 4:23 PM Large Joint (Hip, Knee, Shoulder) Injection: L knee Performed by: Damion Thompson MD Authorized by: Damion Thompson MD Large Joint Injection/Aspiration: Consent Given by: Patient Site marked: the procedure site was marked Timeout: prior to procedure the correct patient, procedure, and site was verified Verbal consent obtained: Yes Supporting Documentation: Indications: Pain Procedure Details: Location: Knee Site: L knee Needle Size: 22 G Approach: Anterolateral Ultrasound guided: No Fluroscopic guidance: No Medications: 2 mL lidocaine 20 mg/mL (2 %); 32 mg triamcinolone acetonide extended release 32 mg Patient tolerance: Patient tolerated the procedure well with no immediate complications Damion Thompson MD IN CLINIC/BEDSIDE ORDERA BLES Final Result from Last 3 Months Insurance MEDICARE [facility] [place] MEDICARE [facility] [place] MEDICARE [facility] Advance Directives For more information, please contact: [phone] * Full Code (Latest Code Status on File) Date Activated Date Inactivated Comments 03/10/2022 3:06 PM 03/11/2022 5:10 PM * Full Code Date Activated Date Inactivated Comments 07/28/2021 1:07 PM 07/30/2021 7:54 PM Care Teams Truck Farmer Relationship Specialty Start Date End Date Sasha George NP [address] [place] [address] [place] [address] PCP - General Nurse Practitioner 07/12/23 Denisse Thorne PA Physician Records Technician Orthopedic Surgery 07/28/21 Cedrick Reinoso NP [address] [place] [address] [place] [address] Nurse Practitioner Nurse Practitioner 03/11/22
--- OUTSIDE RECORDS SUMMARY | 2025-04-14 08:00 | XMS_ITS | Clinical Summary ---
Author Organization [facility] Address [address] [place] [address] Care Team Providers Care Boom Tender Name Role Phone Denisse Thorne Unavailable [phone] Cedrick Reinoso NP Unavailable [phone] Sasha George NP Primary Care Provider [phone] Allergies Active Allergy Reactions Criticality Noted Date [...] (02/07/2022): Added automatically from request for surgery [id number] Biceps tendonitis, right 02/07/2022 Overview (02/07/2022): Added automatically from request for surgery [id number] Arthritis 01/21/2022 Essential hypertension 01/21/2022 Family history [...] (07/20/2021): Added automatically from request for surgery [id number] Localized, primary osteoarthritis of hand 2020 Chondromalacia [...] of breath 07/06/2018 Ventricular premature beats 07/06/2018 Encounters Date Type Department Care Team Description 03/20/2025 8:00 AM CDT Office Visit [facility] Orthopedics and Sports Medicine [address] [place] [address] [address] [place] [address] Damion Thompson MD Primary osteoarthritis of both knees (Primary Dx) from Last 3 Months Surgical History Surgery Date Site/Laterality Comments APPENDECTOMY ROTATOR CUFF REPAIR BACK SURGERY JOINT REPLACEMENT HIP SURGERY Medical History Medical History Date Comments Arthritis Hypertension Seasonal allergic rhinitis Rotator cuff arthropathy Spinal stenosis at L4-L5 level Osteoarthritis Lung disease COPD Irritable bowel syndrome Cigarette nicotine dependence in remission 07/03 Family History Medical History Relation Name Comments Alzheimer's disease Brother 1 Peter Cancer Brother 1 Peter Cancer Brother 2 Kelby Gout Father Ceasar Hypertension Father Ceasar Stroke Father Edgiselle Arthritis Mother Cancer Mother Relation Name Status Comments Brother 1 Nabil Brother 2 Kelby Father Ceasar Mother Social History Tobacco Use Types Packs/Day Years [...] on file Legal Sex Female 12:08 PM CHISEL GRINDER Gender Identity Not on file Sexual Orientation Not on file 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 Not on file Obstetrics History Last Filed Vital Signs Vital Sign Reading Time Taken Comments Blood Pressure 153/93 03/20/2025 8:01 AM CDT Pulse 82 03/20/2025 8:01 AM CDT Temperature 37.1 C (98.8 F) 12/27/2024 8:20 AM CDT Respiratory Rate 18 10/11/2024 2:54 PM CHISEL GRINDER Oxygen Saturation 96% 12/27/2024 8:20 AM CDT Inhaled Oxygen Concentration - - Weight 102.5 kg (226 lb) 03/20/2025 8:01 AM CDT Height 162.6 cm (5' 4) 03/20/2025 8:01 AM CDT Body Mass Index 38.79 03/20/2025 8:01 AM CDT Plan of Treatment Health Maintenance Due Date Last Done Comments Colon Cancer Screening-Colonoscopy 1955 Hepatitis C Screening 1955 Hepatitis B Screening 1971 Well Visit 65+ 2018 Pneumococcal vaccine 65+ (3 of 3 - PCV20 or PCV21) 07/12/2020 07/12/2015, 04/06/2015, 03/18/2015 Depression Screening 07/20/2022 07/20/2021 Fall Risk Assessment 03/11/2023 03/11/2022, 10/25/2018, 09/03/2018, Additional history exists Osteoporosis Screening-Bone Density Scan 08/02/2023 08/02/2021, 07/01/2021 Breast Cancer Screening-Mammogram 08/25/2023 022 Covid-19 Vaccine (5 - 2023-2 5 season) 2024 10/12/2021, 12/24/2020, 12/09/2020, Additional history exists DTaP/Tdap/Td Vaccine (2 - Td or Tdap) 02/18/2025 02/18/2015 Zoster Vaccine Completed 10/10/2019, 05/27, 02/18/2015 Influenza Vaccine Completed 07/19/2024, , 07/16/2020, Additional history exists Goals Goal Patient Goal Type Associated Problems Recent Progress Patient-Stated? Author CCM Chronic Pain Care Plan Chronic Care Management No Mone Rodrigues, RN Note: Problem: Chronic Pain Goals: 1. Minimize further functional decline 2. Maximize quality of life 3. Control pain Strategies: - Activity/exercise program recommendation - Conservative stepwise pain medicine strategy with multi-disciplinary approach - Recommend healthy lifestyle strategies and compensatory methods as needed Reduce the likelihood of falling Lifestyle Mone Harding, RN Note: Below are four things you [...] on stairs Contact your local community or senior center for information on exercise, fall prevention programs, or options for improving home safety. Medical Devices Implanted Type Area Mortar Worker Device Identifier Shelf Expiration Date Model / Serial / Lot [employer] 1217-35-500 [place] 6.5mm 35mm Acetabular Cancellous Screw Bone Sterile - [id number] Implanted:Qty: 1 on 07/28/2021 by Damion Thompson MD at [facility] Left: Hip [employer] 05/25/2031 1217-35-500 / / [id number] Dep[employer] [id number] [place] 54mm 36mm Hip Neutral Liner Acetabular Altrx Sterile Latex Free - [id number] Implanted:Qty: 1 on 07/28/2021 by Damion Thompson MD at [facility] Left: Hip [employer] 04/24/2026 [id number] / / [id number] Dep[employer] [id number] [place] 54mm Sector Hip Shell Acetabular Gription Sterile Latex Free - [id number] Implanted:Qty: 1 on 07/28/2021 by Damion Thompson MD at [facility] Left: Hip [employer] 06/24/2031 [id number] / / [id number] Depuy [employer] [id number] Actis L107 Mm Collar Hip 6 High Offset Stem Femoral - [id number] Implanted:Qty: 1 on 07/28/2021 by Damion Thompson MD at [facility] Left: Hip [employer] 05/25/2031 [id number] / / [id number] Depuy [employer] [id number] Articul/Ender 36mm Cementless Hip +5mm 12/14 Taper Head Femoral Latex Free - [id number] Implanted:Qty: 1 on 07/28/2021 by Damion Thompson MD at [facility] Left: Hip [employer] 05/25/2026 [id number] / / [id number] Exactech Equinoxe 4.5mm 38mm Kit Compression Lock Cap Reverse Shoulder 320-20-38 - Sn/A - [id number] Implanted:Qty: 1 on 03/10/2022 by Denis Aleman MD at [place] [id number] 12/20/2026 320-20-38 / N/A / [id number] Exactech Equinoxe 4.5mm 42mm Kit Compression Lock Cap Reverse Shoulder 320-20-42 - Sn/A - [id number] Implanted:Qty: 1 on 03/10/2022 by Denis Aleman MD at [facility] 06/29/2025 320-20-42 / N/A / [id number] Liner +2.5mm 36mm Huml Rvrs Equinoxe Shldr - Sn/A - [id number] Implanted:Qty: 1 on 03/10/2022 by Denis Aleman MD at [place] [id number] 12/22/2024 320-36-03 / N/A / [id number] Exactech Equinoxe Reverse Shoulder +0mm Tray Humeral Adapter 320-10-00 - Sn/A - [id number] Implanted:Qty: 1 on 03/10/2022 by Denis Aleman MD at [place] [id number] 02/09/2032 320-10-00 / N/A / [id number] Exactech Equinoxe 13mm Press Fit Primary Shoulder Stem Humeral 300-13 - Sn/A - [id number] Implanted:Qty: 1 on 03/10/2022 by Denis Aleman MD at [place] [id number] 05/16/2029 300-01-13 / N/A / [id number] Exactech 320-31-36 Component 36mm Glenoid Glenosphere Reverse Shoulder - Sn/A - [id number] Implanted:Qty: 1 on 03/10/2022 by Denis Aleman MD at [place] [id number] 12/27/2031 320-31-36 / N/A / [id number] Exactech Equinoxe Lock Reverse Shoulder Glenosphere Screw Bone 320-15-05 - Sn/A - [id number] Implanted:Qty: 1 on 03/10/2022 by Denis Aleman MD at [facility] [id number] 02/06/2027 320-15-05 / N/A / [id number] Exactech [id number] e Small Reverse Posterior Augment Shoulder Right 8d Plate - Sn/A - [id number] Implanted:Qty: 1 on 03/10/2022 by Denis Aleman MD at [place] [id number] 09/10/2030 320-35-04 / N/A / [id number] Exactech Reverse Torque Define Shoulder Kit Screw 320-20-00 - Sn/A - [id number] Implanted:Qty: 1 on 03/10/2022 by Denis Aleman MD at [place] [id number] 05/12/2026 320-20-00 / N/A / [id number] Procedures Procedure Name Priority Date/Time Associated Diagnosis Comments [place] ARTHROCENTESIS ASPIR&/INJ MAJOR JT/BURSA W/O US Routine 03/20/2025 8:00 AM CDT Primary osteoarthritis of both knees [place] ARTHROCENTESIS ASPIR&/INJ MAJOR JT/BURSA W/O US Routine 03/20/2025 8:00 AM CDT Primary osteoarthritis of both knees from Last 3 Months Results * [place] ARTHROCENTESIS ASPIR&/INJ MAJOR JT/BURSA W/O US (03/20/2025 [...] IN CLINIC/BEDSIDE ORDERA BLES Final Result * [place] ARTHROCENTESIS ASPIR&/INJ MAJOR JT/BURSA W/O US (03/20/2025 8:00 AM CDT) Damion Page MD - 03/20/2025 8:00 AM CDT Damion [...] the procedure well with no immediate complications Result [facility] Damion Thompson MD IN CLINIC/BEDSIDE ORDERA BLES Final Result from Last 3 Months Insurance MEDICARE [facility] Address: [address] [address] [facility] [employer] [place] [facility] Advance Directives For more information, please contact: [phone] * Full Code (Latest Code Status on File) Date Activated Date Inactivated Comments 03/10/2022 3:06 PM 03/11/2022 5:10 PM * Full Code Date Activated Date Inactivated Comments 07/28/2021 1:07 PM 07/30/2021 7:54 PM Care Teams Boom Tender Relationship Specialty Start Date End Date Sasha George NP [address] [place] [place] [address] [place] [address] PCP - General Nurse Practitioner 07/12/23 Denisse Thorne PA Physician Psychiatry Teacher Orthopedic Surgery 07/28/21 Cedrick Reinoso NP [address] [place] [address] [place] [address] Nurse Practitioner Nurse Practitioner 03/11/22
[2025-04-14 20:11] LABS: Hemoglobin A1C 6.2 % (<5.7)
[2025-04-14 20:30] LABS: MALB Creatinine Ratio < 42.3 mg/g (0-30)
[2025-04-14 21:35] LABS: Alanine Aminotransferase 33 U/L (6-35); Albumin Level 4.4 g/dL (3.5-5.1); Alkaline Phosphatase 83 U/L (38-126); Anion Gap 6 mmol/L (4-12); Aspartate Amino Transferase 63 U/L (14-36); Bilirubin,Total 0.7 mg/dL (0.2-1.3); Blood Urea Nitrogen 18 mg/dL (7-17); Calcium 9.7 mg/dL (8.4-10.2); Carbon Dioxide 31 mmol/L (22-30); Chloride 99 mmol/L (98-107); Cholesterol 215 mg/dL (0-200); Estimated Glomerular Filt Rate > 60; Glucose 87 mg/dL (65-110); HDL Direct 64 mg/dL; Potassium 4.6 mmol/L (3.4-5.0); Sodium 136 mmol/L (137-145); Total Protein 7.8 g/dL (6.3-8.2); Triglycerides 123 mg/dL (<150)
== END 2025-04-14 07:56 | disposition home or self-care (01) ==
LOC: ANHBWCLAB 07:57
PROVIDERS: PCP Nurse Practitioner Adult Health; Visit Provider Nurse Practitioner Adult Health
DX: E11.9 Type 2 diabetes mellitus without complications (principal); I10 Essential (primary) hypertension
CPT/HCPCS: 36415; 80053; 80061; 82043; 82565; 83036